=== PATIENT | female | born 1980 | race Caucasian/White ===

== ENCOUNTER 2016-04-27 09:14 | Emergency (ER) | payer BC ==
--- NOTE | 2016-04-27 09:26 | EDM.PDOC ---
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 Past medical history: As per history of present illness and as reviewed below otherwise noncontributory. Surgical history: As per history of present illness and as reviewed below otherwise noncontributory. Social history: No reported history of drug or alcohol abuse. Family history: As per history of present illness and as reviewed below otherwise noncontributory. Physical exam: HEENT: Atraumatic, normocephalic, pupils reactive, negative for conjunctival pallor or scleral icterus, mucous membranes moist, throat clear, neck supple, nontender, trachea midline. Lungs: Clear to auscultation, breath sounds equal bilaterally, chest nontender. Heart: S1S2, regular, negative for clicks, rubs, or JVD. Abdomen: Soft, nondistended, nontender. Negative for masses or hepatosplenomegaly. Negative for costovertebral tenderness. Pelvis: Stable nontender. Genitourinary: Deferred. Rectal: Deferred. Extremities: Atraumatic, negative for cords or calf pain. Neurovascular unremarkable. Neuro: Awake, alert, oriented. Cranial nerves II through XII unremarkable. Cerebellum unremarkable. Motor and sensory unremarkable throughout. Exam nonfocal. Diagnostics: Quantitative beta hCG Therapeutics: None Impression: #1 history positive home test Definitive disposition and diagnosis as appropriate pending reevaluation and review of above. - Related Data Allergies Allergy/AdvReac Type Severity Reaction Status Date / Time No Known Allergies Allergy Verified 04/27/16 09:16 Home Meds: Home Meds . 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 Musculoskeletal History: Reports: Fracture Other Musculoskeletal History: fx of toe Neurological History: Reports: None Psychiatric History: Reports: None Endocrine/Metabolic History: Reports: None Hematologic History: Reports: None Immunologic History: Reports: None Oncologic (Cancer) History: Reports: None Dermatologic History: Reports: None - Infectious Disease History Infectious Disease History: Reports: None - Past Surgical History Head Surgeries/Procedures: Reports: None Social & Family History - Family History Family Medical History: Noncontributory - Tobacco Use Smoking Status *Q: Former Smoker Years of Tobacco use: 6 Second Hand Smoke Exposure: No - Caffeine Use Caffeine Use: Reports: Coffee - Recreational Drug Use Recreational Drug Use: No ED ROS GENERAL - Review of Systems Review Of Systems: ROS reveals no pertinent complaints other than HPI. ED EXAM, GENERAL - Physical Exam Exam: See Below (See dictation) Course - Vital Signs Text/Narrative:: Discussed implications of the low quantitative beta and a recent positive test and the differential diagnosis including failed ectopic early intrauterine and threatened miscarriage patient understands implications and need for close follow Last Recorded V/S: Last Vital Signs Temp 37.1 C 04/27/16 09:16 Pulse 70 04/27/16 09:16 Resp 16 04/27/16 09:16 BP 116/74 04/27/16 09:16 Pulse Ox 98 04/27/16 09:16 - Orders/Labs/Meds Labs: Laboratory Tests 04/27/16 Range/Units 09:31 HCG, Quant 29.9 mIU/mL Departure - Departure Time of Disposition: 10:14 Disposition: Home, Self-Care 01 Condition: good Clinical Impression: Threatened Forms: ED Department Discharge Additional Instructions: The following information is given to patients seen in the emergency department who are being discharged to home. This information is to outline your options for follow-up care. We provide all patients seen in our emergency department with a follow-up referral. The need for follow-up, as well as the timing and circumstances, are variable depending upon the specifics of your emergency department visit. If you don't have a primary care physician on staff, we will provide you with a referral. We always advise you to contact your personal physician following an emergency department visit to inform them of the circumstance of the visit and for follow-up with them and/or the need for any referrals to a consulting specialist. The emergency department will also refer you to a specialist when appropriate. This referral assures that you have the opportunity for followup care with a specialist. All of these measure are taken in an effort to provide you with optimal care, which includes your followup. Under all circumstances we always encourage you to contact your private physician who remains a resource for coordinating your care. When calling for followup care, please make the office aware that this follow-up is from your recent emergency room visit. If for any reason you are refused follow-up, please contact the [facility] emergency department at and asked to speak to the emergency department charge nurse. Repeat quantitative beta [phone] and as discussed follow private medical doctor one to 2 days return as needed as discussed
[2016-04-27 10:23] VITALS: BP 113/70
== END 2016-04-27 10:21 | disposition home or self-care (01) ==
LOC: MW.ED 09:14
DX: O20.0 Threatened abortion (principal); Z87.891 Personal history of nicotine dependence
CPT/HCPCS: 36415; 84702; 99283; 99284

== ENCOUNTER → 2016-07-07 | Outpatient (CLI) | payer BC | LOC: MW.CHOBGYN 15:02 | PROVIDERS: ATTEND Obstetrics & Gynecology | DX: O09.519 Supervision of elderly primigravida, unspecified trimester (principal) | CPT/HCPCS: 87480; 87491; 87510; 87591; 87660 ==

== ENCOUNTER 2017-01-22 23:32 | Inpatient (IN) | payer BC ==
[2017-01-23] MEDS ORDERED: Water For Irrigation,Sterile 1,000 ML Container IRR PRN (01:57)
[2017-01-23] MEDS ORDERED: Lidocaine 1% 50 ML MDV INJECT PRN (01:57)
[2017-01-23] MEDS ORDERED: Misoprostol 200 MCG Tab PO PRN (01:57)
[2017-01-23] MEDS ORDERED: Sodium Chloride 0.9% 2.5 ML Syringe FLUSH PRN (01:57)
[2017-01-23] MEDS ORDERED: Nalbuphine 10 MG/1 ML Vial IVPUSH PRN (01:57)
[2017-01-23] MEDS ORDERED: Carboprost Tromethamine 250 MCG/1 ML Amp IM PRN (01:57)
[2017-01-23] MEDS ORDERED: Sodium Chloride 0.9% 10 ML Syringe FLUSH PRN (01:57)
[2017-01-23] MEDS ORDERED: Methylergonovine 0.2 MG/1 ML Amp IM PRN (01:57)
[2017-01-23] MEDS ORDERED: Oxytocin/0.9 % Sodium Chloride 30 UNIT/500 ML BAG IV SCH ×3 (02:00→09:15)
[2017-01-23] MEDS ORDERED: Terbutaline 1 MG/ML SDV SUBCUT PRN (04:16)
[2017-01-23] MEDS ORDERED: Misoprostol 25 MCG (1/4 of 100 MCG) Tab VAG PRN (04:16)
[2017-01-23] MEDS ORDERED: Misoprostol 25 MCG (1/4 of 100 MCG) Tab VAG SCH (04:30)
[2017-01-23] MEDS: Lactated Ringers 1,000 ML IV SCH ×3 (09:24→16:09)
[2017-01-23] MEDS: Butorphanol 1 MG/ML SDV IVPUSH PRN ×2 (09:31→11:18)
[2017-01-23] MEDS ORDERED: Ropivacaine 0.2% 2 MG/ML 20 ML SDV ONE (12:36)
[2017-01-23] MEDS ORDERED: fentaNYL 100 MCG/2 ML SDV ONE ×2 (12:36→12:37)
[2017-01-23] MEDS ORDERED: Ropivacaine HCl/PF 100 ML ONE (12:36)
--- NOTE | 2017-01-23 13:16 | PCM.PREANE ---
Preanesthetic Assessment - Procedure Proposed Procedure: labor epidural - Anesthesia/Transfusion/Family Hx Anesthesia History: No Prior Anesthesia Family History of Anesthesia Reaction: No - Review of Systems General: No Symptoms Pulmonary: No Symptoms Cardiovascular: No Symptoms Gastrointestinal: No Symptoms Neurological: No Symptoms Other: Reports: None - Physical Assessment NPO Status Date: 01/23/17 NPO Status Time: 13:15 (ice chips) Height: 1.73 m Weight: 97.522 kg ASA Class: 2 Mental Status: Alert & Oriented x3 Airway Class: Mallampati = 2 Dentition: Reports: Normal Dentition ROM/Head Extension: Full Lungs: Clear to Auscultation, Normal Respiratory Effort Cardiovascular: Regular Rate - Lab Values: Laboratory Last Values WBC 9.75 K/uL (4.0-11.0) 01/23/17 02:15 RBC 3.78 M/uL (4.30-5.90) L 01/23/17 02:15 Hgb 11.9 g/dL (12.0-16.0) L 01/23/17 02:15 Hct 35.1 % (36.0-46.0) L 01/23/17 02:15 MCV 92.9 fL (80.0-98.0) 01/23/17 02:15 MCH 31.5 pg (27.0-32.0) 01/23/17 02:15 MCHC 33.9 g/dL (31.0-37.0) 01/23/17 02:15 RDW Std Deviation 43.9 fl (28.0-62.0) 01/23/17 02:15 RDW Coeff of Sneha 13 % (11.0-15.0) 01/23/17 02:15 Plt Count 152 K/uL (150-400) 01/23/17 02:15 MPV 12.60 fL (7.40-12.00) H 01/23/17 02:15 Nucleated RBC % 0.0 /100WBC 01/23/17 02:15 Nucleated RBCs # 0 K/uL 01/23/17 02:15 Membrane Rupture POSITIVE 01/22/17 23:55 Blood Type A POSITIVE 01/23/17 02:15 Antibody Screen NEGATIVE 01/23/17 02:15 - Allergies Allergies/Adverse Reactions: Allergies Allergy/AdvReac Type Severity Reaction Status Date / Time No Known Allergies Allergy Verified 06/04/16 11:14 MDT - Blood Blood Available: Yes Product(s) Available: PRBC - Acknowledgements Anesthesia Type Planned: General Anesthesia Pt an Appropriate Candidate for the Planned Anesthesia: Yes Alternatives and Risks of Anesthesia Discussed w Pt/Guardian: Yes Pt/Guardian Understands and Agrees with Anesthesia Plan: Yes PreAnesthesia Questionnaire - Past Health History Medical/Surgical History: Denies Medical/Surgical History HEENT History: Reports: Impaired Vision Cardiovascular History: Reports: None Respiratory History: Reports: None Gastrointestinal History: Reports: None Genitourinary History: Reports: None 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, Musculoskeletal History: Reports: Fracture Other Musculoskeletal History: fx of toe Neurological History: Reports: None Psychiatric History: Reports: None Endocrine/Metabolic History: Reports: None Hematologic History: Reports: None Immunologic History: Reports: None Oncologic (Cancer) History: Reports: None Dermatologic History: Reports: None - Infectious Disease History Infectious Disease History: Reports: None - Past Surgical History Head Surgeries/Procedures: Reports: None - SUBSTANCE USE Smoking Status *Q: Former Smoker Tobacco Use Within Last Twelve Months: No Second Hand Smoke Exposure: No Recreational Drug Use History: No - HOME MEDS Home Medications: Home Meds Progesterone,Micronized [Crinone] 1 applic TOP DAILY 06/04/16 [History] - CURRENT (IN HOUSE) MEDS Current Meds: Current Medications Butorphanol Tartrate (Stadol) 1 mg IVPUSH Q1H PRN PRN Reason: Pain Last Admin: 01/23/17 11:18 Dose: 1 mg Carboprost Tromethamine (Hemabate Ds) 250 mcg IM ASDIRECTED PRN PRN Reason: Post Hemorrhage Lactated Ringer's (Ringers, Lactated) 1,000 mls @ 150 mls/hr IV ASDIRECTED RADHA Last Admin: 01/23/17 13:08 Dose: 999 mls/hr Oxytocin/Sodium Chloride (Oxytocin 30 Unit/500 Ml-Ns) 30 unit in 500 mls @ 2 mls/hr IV TITRATE RADHA Oxytocin/Sodium Chloride (Oxytocin 30 Unit/500 Ml-Ns) 30 unit in 500 mls @ 2 mls/hr IV TITRATE RADHA; 2 MUNITS/MIN PRN Reason: Protocol Last Titration: 01/23/17 12:19 Dose: 10 munits/min, 10 mls/hr Oxytocin/Sodium Chloride (Oxytocin 30 Unit/500 Ml-Ns) 30 unit in 500 mls @ 2 mls/hr IV TITRATE RADHA; 2 MUNITS/MIN PRN Reason: Protocol Lidocaine HCl (Xylocaine 1%) 50 ml INJECT .ONCE PRN PRN Reason: Laceration repair Methylergonovine Maleate (Methergine) 0.2 mg IM ASDIRECTED PRN PRN Reason: Post Hemorrhage Misoprostol (Cytotec) 200 mcg PO .ONCE PRN PRN Reason: Post Hemorrhage Misoprostol (Cytotec) 25 mcg VAG .ONCE RADHA Misoprostol (Cytotec) 25 mcg VAG Q4H PRN PRN Reason: Cervical Ripening Last Admin: 01/23/17 04:38 Dose: 25 mcg Nalbuphine HCl (Nubain) 10 mg IVPUSH Q1H PRN PRN Reason: Pain (severe 7-10) Sodium Chloride (Saline Flush) 10 ml FLUSH ASDIRECTED PRN PRN Reason: Keep Vein Open Sodium Chloride (Saline Flush) 2.5 ml FLUSH ASDIRECTED PRN PRN Reason: Keep Vein Open Sterile Water (Sterile Water For Irrigation) 1,000 ml IRR ASDIRECTED PRN PRN Reason: delivery Terbutaline Sulfate (Brethine) 0.25 mg SUBCUT ASDIRECTED PRN PRN Reason: Tacysystole Discontinued Medications Fentanyl (Sublimaze) Confirm Administered Dose 100 mcg .ROUTE .STK-MED ONE Stop: 01/23/17 12:37 Fentanyl (Sublimaze) Confirm Administered Dose 200 mcg .ROUTE .STK-MED ONE Stop: 01/23/17 12:38 Ropivacaine (Naropin 0.2%) Confirm Administered Dose 100 mls @ as directed .ROUTE .STK-MED ONE Stop: 01/23/17 12:37 Ropivacaine (Naropin 0.2%) Confirm Administered Dose 20 ml .ROUTE .STK-MED ONE Stop: 01/23/17 12:37
--- NOTE | 2017-01-23 14:53 | PCM.PRNOTE ---
- Free Text/Narrative Note: called to place epidural for c/o increasing pain with labor. Pt identified, report from RN. discussed epidural placement with patient including risks of bleeding, infection, nerve pain, nerve damage and unsuccessful epidural. Pt agrees and had signed consent earlier in day. positioned sitting up, sterile betadine prep x3 and drape. 1% lidocaine SQ at L3 #17 Touhy advanced with no complications to approximately 6 cm. catheter placed to 13 cm at skin. no heme, no parestheais with placement. Test dose of 3 ml 1.5% lidocaine with epinephrine 1:200,000.Negative reaction. bolus dosing of 100 mcg fentanyl in divided doses with ropivicaine 4 ml. level obtained at T10. Pt feeling relief within 4 contractions. connected epidural drip of 0.2% ropivicaine with fentanyl 2 mcg/ml to run at 8 ml/hr with bolus dosing available of 8 ml/10 min with total lockout of 32 ml. explained use of PCEA bolus as needed. bp, hr and hr remain stable throughout
[2017-01-23] MEDS ORDERED: Lanolin 100% Cream 7 GM Tube TOP PRN (19:18)
[2017-01-23] MEDS ORDERED: Benzocaine/Menthol 20%-0.5% Spray 78 GM Cannister TOP PRN (19:18)
[2017-01-23] MEDS ORDERED: Ibuprofen 800 MG Tab PO PRN (19:18)
[2017-01-23] MEDS ORDERED: Acetaminophen 500 MG Tab PO PRN ×2 (19:18)
[2017-01-23] MEDS ORDERED: Witch Hazel Medicated Pads 40/Jar TOP PRN (19:18)
[2017-01-23] MEDS ORDERED: oxyCODONE 5 MG Tab PO PRN (19:18)
[2017-01-23] MEDS ORDERED: Bisacodyl 10 MG Supp RECTAL PRN (19:18)
[2017-01-23] MEDS ORDERED: Ondansetron 4 MG/2 ML SDV ONE (19:30)
[2017-01-23] MEDS ORDERED: Ondansetron 4 MG/2 ML SDV IVPUSH ONE (19:40)
[2017-01-23] MEDS: Docusate Sodium 100 MG Cap PO PRN (20:49)
--- NOTE | 2017-01-23 23:12 | OR ---
SURGEON: Carmen Alexander MD DATE OF PROCEDURE: 01/23/2017 PREOPERATIVE DIAGNOSES: 1. Term at 38 weeks and 3 days. 2. Premature rupture of membranes. POSTOPERATIVE DIAGNOSES: 1. Term at 38 weeks and 3 days. 2. Premature rupture of membranes. 3. Delivered. PROCEDURE: 1. Induction of labor. 2. Spontaneous vaginal delivery. ANESTHESIA: Epidural. ESTIMATED BLOOD LOSS: 100 mL. COMPLICATIONS: None. DISPOSITION: Mother and baby stable in labor and delivery room, bonding. FINDINGS: Male , weight 3100 grams, score 6 and 9 at 1 and 5 minutes respectively. Grossly normal placenta with three-vessel cord. Intact perineum. BRIEF HISTORY: Shelby is a 36-year-old, G3, P0, who presented last night at 2330 hours with a history of leakage of clear fluid 30 minutes prior to her presenting to the hospital. She denies contractions, vaginal bleeding, and reported active fetus. Uncomplicated care. GBS negative. On presentation, she was examined and found to be closed. She was managed expectantly for 6 hours and with no cervical change,induction of labor was commenced. She received one dose of Cytotec followed by Pitocin. She made slow progress during the day but after placement her epidural, she progressed faster and became fully dilated. heart tracing was mainly category 1 alternating with category 2 intermittently. With strong urge to push, she commenced active pushing and pushed quite nicely bringing the baby's head down to a +4 station and was set up for delivery in modified dorsal lithotomy position. PROCEDURE IN DETAIL: She had a spontaneous vaginal delivery of a live male infant in direct occipital anterior position, clear fluid at delivery, nuchal cord x 1 which was easily reduced. The anterior and the posterior shoulders were delivered without difficulties followed by the rest of the baby. The baby was delivered onto the maternal abdomen with the nursery nurse attending to him. Delayed cord clamping was performed and the cord was subsequently cut by the father of the baby. The infant was noted to transition slowly, and he was transferred over to the warmer for further evaluation by the pediatric team. Cord blood and gas samples were obtained. Placenta was delivered by controlled cord traction, appeared to be complete and intact. Examination of the perineum revealed no lacerations. Uterine massage was performed. The uterus was found to be well contracted and below the umbilicus. The patient tolerated the procedure well. Sponge, instrument, and needle counts were correct at the end of the delivery. The baby subsequently transitioned well and remained in the room with the mother. RHYS / SHAMAR /[id number] MTDD
[2017-01-24] MEDS: Ibuprofen 400 MG Tab PO PRN ×4 (02:06→16:40)
[2017-01-24] MEDS: Docusate Sodium 100 MG Cap PO PRN (08:18)
--- NOTE | 2017-01-24 13:06 | PCM.PNPP ---
- General Info Date of Service: 01/24/17 Functional Status: Reports: Pain Controlled, Tolerating Diet, Ambulating, Urinating - Review of Systems General: Denies: Fever, Chills HEENT: Denies: Headaches Pulmonary: Denies: Shortness of Breath, Pleuritic Chest Pain, Cough Cardiovascular: Denies: Chest Pain, Palpitations, Dyspnea on Exertion Gastrointestinal: Denies: Abdominal Pain Genitourinary: Denies: Dysuria, Incontinence Musculoskeletal: Reports: No Symptoms Psychiatric: Denies: Confusion, Depression, Anxiety - General Info Date of Service: 01/24/17 - Patient Data Vital Signs - Most Recent: Last Vital Signs Temp 37.0 C 01/24/17 10:10 Pulse 89 01/24/17 10:10 Resp 18 01/24/17 10:10 BP 120/73 01/24/17 10:10 Pulse Ox 96 01/24/17 10:10 Weight - Most Recent: 215 lb I&O - Last 24 Hours: Intake & Output 01/23/17 01/24/17 01/24/17 22:59 06:59 14:59 Intake Total 900 Balance 900 Lab Results - Last 24 Hours: Laboratory Results - last 24 hr 01/24/17 Range/Units 05:48 Hgb 11.5 L (12.0-16.0) g/dL Hct 34.3 L (36.0-46.0) % Med Orders - Current: Current Medications Acetaminophen (Tylenol Extra Strength) 500 mg PO Q4H PRN PRN Reason: Pain Acetaminophen (Tylenol Extra Strength) 1,000 mg PO Q4H PRN PRN Reason: Pain Benzocaine/Menthol (Dermoplast Pain Relief 20%-0.5% [place]) 78 gm TOP ASDIRECTED PRN PRN Reason: Perineal Comfort Measure Last Admin: 01/23/17 20:51 Dose: 1 canister Bisacodyl (Dulcolax) 10 mg RECTAL .ONCE PRN PRN Reason: Constipation Docusate Sodium (Colace) 100 mg PO BID PRN PRN Reason: Constipation Last Admin: 01/24/17 08:18 Dose: 100 mg Emollient Ointment (Lansinoh Hpa) 0 gm TOP ASDIRECTED PRN PRN Reason: Sore Nipples Last Admin: 01/23/17 20:49 Dose: 1 tube Ibuprofen (Motrin) 400 mg PO Q4H PRN PRN Reason: Pain Last Admin: 01/24/17 12:28 Dose: 400 mg Ibuprofen (Motrin) 800 mg PO Q6H PRN PRN Reason: Pain Last Admin: 01/23/17 20:50 Dose: 800 mg Oxycodone HCl (Oxycodone) 5 mg PO Q2H PRN PRN Reason: Pain Witch Traci (Tucks) 1 pad TOP ASDIRECTED PRN PRN Reason: comfort care Discontinued Medications Butorphanol Tartrate (Stadol) 1 mg IVPUSH Q1H PRN PRN Reason: Pain Last Admin: 01/23/17 11:18 Dose: 1 mg Carboprost Tromethamine (Hemabate Ds) 250 mcg IM ASDIRECTED PRN PRN Reason: Post Hemorrhage Fentanyl (Sublimaze) Confirm Administered Dose 100 mcg .ROUTE .STK-MED ONE Stop: 01/23/17 12:37 Fentanyl (Sublimaze) Confirm Administered Dose 200 mcg .ROUTE .STNotis.tv-MED ONE Stop: 01/23/17 12:38 Lactated Ringer's (Ringers, Lactated) 1,000 mls @ 150 mls/hr IV ASDIRECTED RADHA Last Admin: 01/23/17 16:09 Dose: 150 mls/hr Oxytocin/Sodium Chloride (Oxytocin 30 Unit/500 Ml-Ns) 30 unit in 500 mls @ 2 mls/hr IV TITRATE RADHA Oxytocin/Sodium Chloride (Oxytocin 30 Unit/500 Ml-Ns) 30 unit in 500 mls @ 2 mls/hr IV TITRATE RADHA; 2 MUNITS/MIN PRN Reason: Protocol Last Titration: 01/23/17 15:13 Dose: 8 munits/min, 8 mls/hr Oxytocin/Sodium Chloride (Oxytocin 30 Unit/500 Ml-Ns) 30 unit in 500 mls @ 2 mls/hr IV TITRATE RADHA; 2 MUNITS/MIN PRN Reason: Protocol Ropivacaine (Naropin 0.2%) Confirm Administered Dose 100 mls @ as directed .ROUTE .STK-MED ONE Stop: 01/23/17 12:37 Lidocaine HCl (Xylocaine 1%) 50 ml INJECT .ONCE PRN PRN Reason: Laceration repair Methylergonovine Maleate (Methergine) 0.2 mg IM ASDIRECTED PRN PRN Reason: Post Hemorrhage Misoprostol (Cytotec) 200 mcg PO .ONCE PRN PRN Reason: Post Hemorrhage Misoprostol (Cytotec) 25 mcg VAG .ONCE RADHA Misoprostol (Cytotec) 25 mcg VAG Q4H PRN PRN Reason: Cervical Ripening Last Admin: 01/23/17 04:38 Dose: 25 mcg Nalbuphine HCl (Nubain) 10 mg IVPUSH Q1H PRN PRN Reason: Pain (severe 7-10) Ondansetron HCl (Zofran) Confirm Administered Dose 4 mg .ROUTE .STK-MED ONE Stop: 01/23/17 19:31 Ondansetron HCl (Zofran) 4 mg IVPUSH ONETIME ONE Stop: 01/23/17 19:41 Last Admin: 01/23/17 19:35 Dose: 4 mg Ropivacaine (Naropin 0.2%) Confirm Administered Dose 20 ml .ROUTE .STK-MED ONE Stop: 01/23/17 12:37 Sodium Chloride (Saline Flush) 10 ml FLUSH ASDIRECTED PRN PRN Reason: Keep Vein Open Sodium Chloride (Saline Flush) 2.5 ml FLUSH ASDIRECTED PRN PRN Reason: Keep Vein Open Sterile Water (Sterile Water For Irrigation) 1,000 ml IRR ASDIRECTED PRN PRN Reason: delivery Terbutaline Sulfate (Brethine) 0.25 mg SUBCUT ASDIRECTED PRN PRN Reason: Tacysystole - Infant Interaction Disposition, : in Room with Family Interaction: Not Applicable Infant Feeding: Breastfed ; Nursed Well, Continues to Breastfeed Support Person: - Recovery Exam Fundal Tone: Firm Fundal Level: At Umbilicus Fundal Placement: Midline Lochia Amount: Scant Lochia Color: Rubra/Red Perineum Description: Intact, Minimal Bruising/Swelling Episiotomy/Laceration: None Bladder Status: Voiding - Exam General: Alert, Oriented HEENT: Pupils Equal Lungs: Clear to Auscultation, Normal Respiratory Effort Cardiovascular: Regular Rate, Regular Rhythm GI/Abdominal Exam: Normal Bowel Sounds, Soft, Non-Tender Extremities: Non-Tender, Pedal Edema Skin: Warm Psy/Mental Status: Alert, Normal Affect, Normal Mood - Problem List & Annotations (1) Vaginal delivery SNOMED Code(s): 103606511 Code(s): O80 - ENCOUNTER FOR FULL-TERM UNCOMPLICATED DELIVERY Status: Acute Current Visit: Yes - Problem List Review Problem List Initiated/Reviewed/Updated: Yes - My Orders Last 24 Hours: My Active Orders 01/23/17 19:18 Patient Status [ADT] Routine May Shower [RC] ASDIRECTED Up ad Kathy [RC] ASDIRECTED Vital Signs [RC] PER UNIT ROUTINE Acetaminophen [Tylenol Extra Strength] 1,000 mg PO Q4H PRN Acetaminophen [Tylenol Extra Strength] 500 mg PO Q4H PRN Benzocaine/Menthol [Dermoplast Pain Relief 20%-0.5% [place]] 78 gm TOP ASDIRECTED PRN Bisacodyl [Dulcolax] 10 mg RECTAL .ONCE PRN Docusate Sodium [Colace] 100 mg PO BID PRN Ibuprofen [Motrin] 400 mg PO Q4H PRN Ibuprofen [Motrin] 800 mg PO Q6H PRN Lanolin [Lansinoh HPA] See Dose Instructions TOP ASDIRECTED PRN Witch Traci [Tucks] 1 pad TOP ASDIRECTED PRN oxyCODONE 5 mg PO Q2H PRN Assess Lochia [WOMSER] Per Unit Routine Assess Uterine Involution [WOMSER] Per Unit Routine Breast Pump [WOMSER] Per Unit Routine Peripheral IV Discontinue [OM.PC] Routine Resuscitation Status Routine 01/24/17 Breakfast Regular Diet [DIET] - Assessment Assessment:: PPD#1 s/p , stable and afebrile Clinically stable for discharge - Plan Plan:: Discharge instructions reviewed Nothing in the vagina for 6 weeks Bleeding, infection precautions and perineal care reviewed Continue PNV whilst breast feeding S/S of depression reviewed Follow up in 6 weeks at the clinic
[2017-01-24 17:09] VITALS: BP 113/71
== END 2017-01-24 21:00 | disposition home or self-care (01) | DRG 560 ==
LOC: MW.OBCHECK 23:32 → MW.OB 23:35 → MW.OBCHECK 01-23 01:57 → MW.OB 01-23 01:57 → OBSVTOIN 01-23 18:50 → MW.OB 01-23 22:13
PROVIDERS: ADMIT Obstetrics & Gynecology; ATTEND Obstetrics & Gynecology
PROC: 10E0XZZ Delivery of Products of Conception, External Approach (ICD-10-PCS; principal; 2017-01-23)
PROC: 3E0P7VZ Introduction of Hormone into Female Reproductive, Via Natural or Artificial Opening (ICD-10-PCS; 2017-01-23)
DX: O42.02 Full-term premature rupture of membranes, onset of labor within 24 hours of rupture (principal); Z3A.38 38 weeks gestation of pregnancy; Z37.0 Single live birth
CPT/HCPCS: 36415; 51702; 59025; 59409; 84112; 85014; 85018; 85027; 86850; 86900; 86901; A9270-GY; J0595; J2405; J2590; J7120

== ENCOUNTER 2023-11-14 14:19 | Emergency (ER) | payer BC ==
[2023-11-14] MEDS: Sodium Chloride 0.9% 1,000 ML IV ONE (15:02)
[2023-11-14 15:06] LABS: BASOPHILS ABSOLUTE AUTO 0.05 K/uL (0.00-0.20); BASOPHILS PERCENT AUTO 0.3 % (0.0-1.0); EOSINOPHILS ABSOLUTE AUTO 0.05 K/uL (0.00-0.45); EOSINOPHILS PERCENT AUTO 0.3 % (0.0-6.0); HEMATOCRIT 39.4 % (37.0-47.0); HEMOGLOBIN 13.5 g/dL (12.0-16.0); IMMATURE GRAN ABSOLUTE AUTO 0.04 K/uL (0.00-0.05); IMMATURE GRAN PERCENT AUTO 0.3 % (0.0-0.4); LYMPHOCYTES ABSOLUTE AUTO 1.43 K/uL (1.00-4.80); MEAN CORPUSCULAR HEMOGLOBIN 30.8 pg (28.0-32.0); MEAN CORPUSCULAR HGB CONC 34.3 g/dL (32.0-36.0); MEAN PLATELET VOLUME 9.4 fL (9.4-12.3); MONOCYTES ABSOLUTE AUTO 0.52 K/uL (0.00-0.80); MONOCYTES PERCENT AUTO 3.6 % (0.0-8.0); NEUTROPHILS ABSOLUTE AUTO 12.24 K/uL (1.80-7.70); NEUTROPHILS PERCENT AUTO 85.5 % (41.0-71.0); PLATELET COUNT,PLT 298 K/uL (150-400); RED BLOOD CELL COUNT 4.38 M/uL (4.10-5.30); WHITE BLOOD CELL COUNT,WBC 14.33 K/uL (3.9-11.3)
[2023-11-14 15:08] LABS: BILIRUBIN,URINE NEGATIVE (NEGATIVE); COLOR,URINE YELLOW; GLUCOSE,URINE NEGATIVE (NEGATIVE); KETONES,URINE TRACE mg/dL (NEGATIVE); LEUKOCYTE ESTERASE,URINE NEGATIVE (NEGATIVE); NITRITE,URINE NEGATIVE (NEGATIVE); OCCULT BLOOD,URINE NEGATIVE (NEGATIVE); PH,URINE 7.5 (5.0-8.0); PROTEIN,URINE TRACE mg/dL (NEGATIVE); UROBILINOGEN,URINE 0.2 EU/dL (<2.0)
[2023-11-14 15:14] LABS: APPEARANCE,URINE HAZY
[2023-11-14 15:15] LABS: EPITHELIAL CELLS,URINE RARE (NONE-FEW); MUCUS,URINE FEW (NONE-MOD); RBC,URINE 0-1 (0-2/HPF); WBC,URINE 0-2 (0-5/HPF)
[2023-11-14 15:16] LABS: BACTERIA,URINE FEW (NEGATIVE)
[2023-11-14] MEDS: Ketorolac 30 MG/ML SDV IVPUSH ONE (15:21)
[2023-11-14] MEDS: Ondansetron 4 MG/2 ML SDV IVPUSH ONE (15:21)
[2023-11-14 15:28] LABS: A/G RATIO 0.9 (0.9-1.6); ALBUMIN 3.7 g/dL (3.4-5.0); BILIRUBIN TOTAL 0.6 mg/dL (0.2-1.0); CALCIUM 9.1 mg/dL (8.5-10.1); CARBON DIOXIDE,CO2 28.9 mmol/L (21.0-32.0); CREATININE 0.9 mg/dL (0.6-1.0); EST CRCL DRUG DOSING (CG) 57.3 mL/min; MAGNESIUM 1.8 mg/dL (1.8-2.4); POTASSIUM,K 3.7 mmol/L (3.5-5.1); PROTEIN TOTAL,TP 7.8 g/dL (6.4-8.2)
[2023-11-14] MEDS: Dicyclomine 10 MG Cap PO ONE (16:18)
[2023-11-14 16:20] VITALS: BP 112/64; PULSE 82
== END 2023-11-14 16:22 | disposition home or self-care (01) ==
LOC: MW.ED 14:19
DX: A08.4 Viral intestinal infection, unspecified (principal); Z79.899 Other long term (current) drug therapy; Z75.8 Other problems related to medical facilities and other health care
CPT/HCPCS: 36415; 80053; 81001; 81025; 83690; 83735; 85025; 96361; 96374; 96375; 99284; A9270; J1885; J2405; J7030